=== PATIENT | female | born 1935 | race Caucasian/White ===

== ENCOUNTER 2018-06-26 10:22 | Inpatient (IN) | payer OTHER, MEDICARE ==
[~2018-06-26] VITALS: Ht 154.9 cm; Wt 79.0 kg
[2018-06-26 10:26] VITALS: Ht 154.9 cm; Wt 79.0 kg
[2018-06-26 11:03] LABS: BASOPHIL % 0.5 % (0-2); PLATELET COUNT 294 x10^3mcL (130-400)
[2018-06-26 11:04] LABS: RED CELL DISTRIBUTION WIDTH 16.8 % (11.5-14.5)
[2018-06-26] MEDS ORDERED: PROAIR RES117 MCG/Ac (11:19)
[2018-06-26] MEDS ORDERED: EPZICOM1 TAB (11:19)
[2018-06-26] MEDS ORDERED: FLUTICASONE-SA1 EAC1 (11:21)
[2018-06-26] MEDS ORDERED: LIPITOR40 MG (11:23)
[2018-06-26] MEDS ORDERED: LANTUS SOLOS100 U/M1 (11:23)
[2018-06-26] MEDS ORDERED: AMARYL4 MG (11:24)
[2018-06-26] MEDS ORDERED: FUROSEMIDE40 MG PO (11:24)
[2018-06-26] MEDS ORDERED: NATURE'S BLEND100 MG PO (11:25)
[2018-06-26] MEDS ORDERED: WELSR (11:26)
[2018-06-26] MEDS ORDERED: TRAZODONE50 M1 (11:26)
[2018-06-26] MEDS ORDERED: LISINOPRIL20 MG (11:26)
[2018-06-26] MEDS ORDERED: CYMBALTA60 M1 (11:27)
[2018-06-26] MEDS ORDERED: SINGULAIR10 MG (11:27)
[2018-06-26 11:32] LABS: ALBUMIN 3.5 g/dL (3.4-5.0); ALKALINE PHOSPHATASE 132 U/L (46-116); AST/SGOT 12 U/L (15-37); BILIRUBIN TOTAL 0.49 mg/dL (0.20-1.00); CALCIUM 8.9 mg/dL (8.5-10.1); CARBON DIOXIDE 23.8 mmol/L (21-32); CHLORIDE SERUM 100 mmol/L (98-107); CREATININE SERUM 2.2 mg/dL (0.6-1.0); POTASSIUM SERUM 4.6 mmol/L (3.5-5.1); SODIUM SERUM 135 mmol/L (136-145)
[2018-06-26 11:38] LABS: GLUCOSE SERUM 523 mg/dL (74-106)
[2018-06-26 11:48] LABS: ALT/SGPT 16 U/L (14-59)
[2018-06-26 12:19] LABS: UA SPECIFIC GRAVITY 1.015 (1.005-1.035); microscopic required? YES; urine erythrocyte 2+ (NEGATIVE)
[2018-06-26 13:40] VITALS: BP 122/54
[2018-06-26 13:57] LABS: MAGNESIUM 1.8 mg/dL (1.8-2.4); PHOSPHOROUS 2.9 mg/dL (2.5-4.9)
[2018-06-26 13:59] LABS: CHOLESTEROL/HDL RATIO 2.5
[2018-06-26 14:03] LABS: T3 TOTAL 0.98 ng/mL
[2018-06-26 14:05] LABS: FREE T4 1.19 ng/dL (0.76-1.46); FREE THYROXINE INDEX 2.8 ug/dL (1.4-4.5); T4(THYROXINE) 8.1 ug/dL (4.7-13.3)
[2018-06-26 16:45] VITALS: BP 130/63
[2018-06-26 19:05] VITALS: BP 130/63
[2018-06-26 20:00] VITALS: BP 124/68
[2018-06-27] VITALS: BP 90/71
[2018-06-27 04:00] VITALS: BP 119/62
[2018-06-27 05:15] LABS: CALCIUM 8.7 mg/dL (8.5-10.1); CARBON DIOXIDE 23.7 mmol/L (21-32); CHLORIDE SERUM 107 mmol/L (98-107); CREATININE SERUM 2.1 mg/dL (0.6-1.0); GLUCOSE SERUM 114 mg/dL (74-106); MAGNESIUM 1.6 mg/dL (1.8-2.4); PHOSPHOROUS 3.5 mg/dL (2.5-4.9); POTASSIUM SERUM 4.5 mmol/L (3.5-5.1); SODIUM SERUM 141 mmol/L (136-145)
[2018-06-27 05:57] LABS: BASOPHIL % 0.7 % (0-2); PLATELET COUNT 237 x10^3mcL (130-400)
[2018-06-27 05:58] LABS: RED CELL DISTRIBUTION WIDTH 16.6 % (11.5-14.5)
[2018-06-27 07:37] VITALS: BP 104/57
[2018-06-27 12:26] VITALS: BP 139/65
[2018-06-27 16:59] VITALS: BP 109/52
[2018-06-27 21:08] VITALS: BP 104/54
[2018-06-28 05:59] VITALS: BP 107/51
[2018-06-28 07:36] LABS: CALCIUM 8.7 mg/dL (8.5-10.1); CARBON DIOXIDE 21.6 mmol/L (21-32); CHLORIDE SERUM 104 mmol/L (98-107); CREATININE SERUM 2.3 mg/dL (0.6-1.0); GLUCOSE SERUM 88 mg/dL (74-106); MAGNESIUM 1.9 mg/dL (1.8-2.4); PHOSPHOROUS 4.3 mg/dL (2.5-4.9); SODIUM SERUM 138 mmol/L (136-145)
[2018-06-28 07:43] LABS: BASOPHIL % 0.6 % (0-2); PLATELET COUNT 227 x10^3mcL (130-400)
[2018-06-28 07:55] VITALS: BP 111/53
[2018-06-28 07:58] LABS: rbc morphology (normal/abnorm) ABNORMAL (NORMAL)
[2018-06-28 11:19] VITALS: BP 106/50
[2018-06-28] MEDS ORDERED: CLOPIDOGREL75 M1 PO (14:29)
[2018-06-28] MEDS ORDERED: ATORVASTATIN CA40 M1 PO (14:30)
[2018-06-28] MEDS ORDERED: METOPROLOL SUCC25 M2 PO (14:31)
[2018-06-28] MEDS ORDERED: ECO81 PO (14:33)
[2018-06-28 15:39] VITALS: BP 106/50
[2018-06-28 17:15] VITALS: BP 106/52
== END 2018-06-28 17:53 | disposition home or self-care (01) | DRG 280 ==
LOC: ED 10:22 → IC 12:28 → DU 12:28 → IC 12:59 → DU 06-27 16:12
PROVIDERS: Emergency Medicine; General Practice
DX: I21.4 Non-ST elevation (NSTEMI) myocardial infarction (principal); J96.01 Acute respiratory failure with hypoxia; N17.0 Acute kidney failure with tubular necrosis; I50.43 Acute on chronic combined systolic (congestive) and diastolic (congestive) heart failure; J45.21 Mild intermittent asthma with (acute) exacerbation; D68.69 Other thrombophilia; I13.0 Hypertensive heart and chronic kidney disease with heart failure and stage 1 through stage 4 chronic kidney disease, or unspecified chronic kidney disease; N18.3 Chronic kidney disease, stage 3 (moderate); E11.65 Type 2 diabetes mellitus with hyperglycemia; E11.21 Type 2 diabetes mellitus with diabetic nephropathy; E11.22 Type 2 diabetes mellitus with diabetic chronic kidney disease; D50.9 Iron deficiency anemia, unspecified; F32.9 Major depressive disorder, single episode, unspecified; Z79.4 Long term (current) use of insulin; Z68.32 Body mass index [BMI] 32.0-32.9, adult; Z87.891 Personal history of nicotine dependence; Z91.14 Patient's other noncompliance with medication regimen
CPT/HCPCS: 82962; 83880; 84439; 97110-GP; 97116-GP; J1644; J1815; J1940; J7030; J7040; J7620; J7626; Q0092